=== PATIENT | male | born 1990 | race Caucasian/White ===

== ENCOUNTER → 2020-12-12 | Outpatient (REF) | payer OTHER ==
[~2020-12-12] MED LIST: VENTAER INH
== END ==
LOC: M LAB REF 17:52
PROVIDERS: ATTEND Physician Assistant Medical
DX: R50.9 Fever, unspecified (principal)

== ENCOUNTER 2020-12-17 14:35 | Emergency (ER) | payer OTHER ==
[~2020-12-17] VITALS: Ht 175.3 cm; Wt 67.4 kg
--- OUTSIDE RECORDS SUMMARY | 2020-12-17 14:43 | CCD ---
Author Author [facility] Organization [facility] Address Unknown Phone Unavailable Support Name Relationship Address Phone CARFRESH Next Of Kin [address] [place] [address] JEOVANY Next Of Kin [address] [place] [address] VANITA CARVAJAL Next Of [address] [place] [address] Edyta CARVAJAL Next Of Kin [address] [facility] [address] [place] [address] Re-disclosure Warning The records that you are about to access may contain information from federally-assisted alcohol or drug abuse programs. If such information is present, then the following federally mandated warning applies: This information has been disclosed to you from records protected by federal confidentiality rules (42 CFR part 2). The federal rules prohibit you from making any further disclosure of this information unless further disclosure is expressly permitted by the written consent of the person to whom it pertains or as otherwise permitted by 42 CFR part 2. A general authorization for the release of medical or other information is NOT sufficient for this purpose. The Federal rules restrict any use of the information to criminally investigate or prosecute any alcohol or drug abuse patient.The records that you are about to access may contain highly sensitive health information, the redisclosure of which is protected by Article 27-F of the [facility] Public Health law. If you continue you may have access to information: Regarding HIV / AIDS; Provided by facilities licensed or operated by the [facility] Office of Mental Health; or Provided by the [facility] Office for People With Developmental Disabilities. If such information is present, then the following [facility] mandated warning applies: This information has been disclosed to you from confidential records which are protected by state law. State law prohibits you from making any further disclosure of this information without the specific written consent of the person to whom it pertains, or as otherwise permitted by law. Any unauthorized further disclosure in violation of state law may result in a fine or penitentiary sentence or both. A general authorization for the release of medical or other information is NOT sufficient authorization for further disc losure. Family History Family Member Name Family Member Gender Family Member Status Date o f Status Description Data Source(s) Unknown Unknown Problem [facility] ([facility]) Unknown Unknown Problem [facility] ([facility]) father,mgf,mgm,maternal uncle Unknown Unknown Problem [facility] ([facility] Immunizations Vaccine Date Status Description Data Source(s) COVID-19 VACCINE Moderna 07/13/2020 12:00:00 AM EDT completed [place] Vaccine Series Complete: NOThis Data was Submitted to [facility] Via [employer]. Medications No Information Insurance Providers Payer name Policy type / Coverage type Policy ID Covered green party ID Covered green party's relationship to castillo Policy Castillo Plan Information [facility] [id number] SP 82 [id number] Lifetime Benefit Solution Commercial [id number] Self 1 [id number] Lifetime [employer] Commercial [id number] Self [employer] [id number] SP [id number] [employer] O [id number] S [id number] Lif[employer] Commercial [id number] Self Problems, Conditions, and Diagnoses No Information Surgeries/Procedures No Information Results ID Date Data Source [id number] 12/08/2020 12:00:00 AM EDT [place] Name Value Range Interpretation Code Description Data [place] rce(s) Supporting Document(s) SARS-CoV2 Rapid Antigen [address] [facility] This lab was ordered by [facility] and reported by [facility]. Procedure Social History No Information Vital Signs ID Date Data Source UNK Name Value Range Interpretation Code Description Data Source(s) Systolic blood pressure 142 mm[Hg] 142 mm[Hg] M EDENT ([facility]) Diastolic blood pressure 91 mm[Hg] 91 mm[Hg] [facility] ([facility]) Heart rate 99 /min 99 /min [facility] ([facility]) Respiratory rate 18 /min 18 /min [facility] ( [facility]) Body temperature 98.5 [degF] 98.5 [degF] [facility] Body weight 139.00 [lb_av] 139.00 [lb_av] AUSTIN Cummings ([facility])
[2020-12-17] MEDS ORDERED: ALBUTEROL 90 MCG/ACT 8GM HFA INHALER INH ONE (19:50)
--- OUTSIDE RECORDS SUMMARY | 2020-12-17 20:19 | CCD ---
Author Author [facility] Organization [facility] Address Unknown Phone Unavailable Support Name Relationship Address Phone CARFRESH Next Of Kin [address] [place] [address] JEOVANY Next Of Kin [address] [place] [address] VANITA CARVAJAL Next Of Kin [address] [place] [address] Edyta CARVAJAL Next Of Kin [address] [facility] [address] [place] [address] Re-disclosure Warning The records that you are [...] is protected by Article 27-F of the [facility] Public Health law. If you continue you may have access to information: Regarding HIV / AIDS; Provided by facilities licensed or operated by the [facility] Office of Mental Health; or Provided by the [facility] Office for People With Developmental Disabilities. If such information is present, then the following [facility] mandated warning applies: This information has been [...] law may result in a fine or intermediate sentence or both. A general authorization for [...] father,mgf,mgm,maternal uncle Unknown Unknown Problem [facility] ([facility]) Immunizations Vaccine Date Status Description Data Source(s) COVID-19 VACCINE Moderna 07/13/2020 12:00:00 AM EDT completed [place] Vaccine Series Complete: NOThis Data was Submitted to [facility] Via [employer]. Medications No Information Insurance Providers Payer name Policy type / Coverage type Policy ID Covered libertarian ID Covered libertarian's relationship to castillo Policy Castillo Plan Information [facility] [id number] SP [id number] Lifetime Benefit Solution Commercial [id number] Self 1 [id number] Lifetime [employer] Commercial [id number] Self [employer] [id number] SP [id number] [employer] O [id number] S [id number] Lif[employer] Commercial [id number] Self Problems, Conditions, and Diagnoses No Information Surgeries/Procedures No Information Results ID Date Data Source [id number] 12/08/2020 12:00:00 AM EDT [place] Name Value Range Interpretation Code Description Data [place] rce(s) Supporting Document(s) SARS-CoV2 Rapid Antigen Negative [facility] This lab was ordered by [facility] and reported by [facility]. Procedure Social History No Information Vital Signs ID Date Data Source UNK Name Value Range Interpretation Code Description Data Source(s) Systolic blood pressure 142 mm[Hg] 142 mm[Hg] M EDENT ([facility]) Diastolic blood pressure 91 mm[Hg] 91 mm[Hg] [facility] ([facility]) Heart rate 99 /min 99 /min [facility] ([facility]) Respiratory rate 18 /min 18 /min [facility] ( [facility]) Body temperature 98.5 [degF] 98.5 [degF] [facility] Body weight 139.00 [lb_av] 139.00 [lb_av] AUSTIN Cummings ([facility])
[2020-12-17 20:37] LABS: BASO % 0.3 % (0.0-1.0); EOS % 0.3 % (0.0-3.0); HEMATOCRIT 50.9 % (42.0-52.0); HEMOGLOBIN 17.1 g/dl (13.5-17.5); LYMPH # 2.8 10^3/uL (1.5-5.0); LYMPH % 23.7 % (24.0-44.0); MEAN CORPUSCULAR HEMOGLOBIN 30.4 pg (27.0-33.0); MEAN CORPUSCULAR HGB CONC 33.6 g/dl (32.0-36.5); MEAN CORPUSCULAR VOLUME 90.4 fl (80.0-96.0); MONO % 8.4 % (2.0-8.0); NEUTROPHILS # 7.8 10^3/uL (1.5-8.5); NEUTROPHILS % 66.6 % (36.0-66.0); PLATELET COUNT, AUTOMATED 210 10^3/uL (150-450); RED BLOOD COUNT 5.63 10^6/uL (4.30-6.10); WHITE BLOOD COUNT 11.7 10^3/uL (4.0-10.0)
[2020-12-17 20:53] LABS: CK-MB VALUE MASS 1.1 NG/ML (<3.6); CPK CREATINE PHOSPHOKINASE 60 U/L (39-308); MB/CK RELATIVE INDEX 1.83 (< OR =4); TROPONIN I < 0.02 NG/ML (< 0.10)
[2020-12-17 21:13] LABS: RSV AMPLIFICATION NEGATIVE (NEGATIVE)
--- NOTE | 2020-12-17 22:16 | REPVR ---
PROCEDURE INFORMATION: Exam: XR Chest Exam date and time: 12/17/20 (8:19pm) Age: 30 years old Clinical indication: Chest pain TECHNIQUE: Imaging protocol: Portable CXR Views: 1 view COMPARISON: No relevant prior studies available FINDINGS: Lungs: Unremarkable. No consolidation. Pleural spaces: Unremarkable. No pleural effusions. No pneumothorax. Heart/Mediastinum: Unremarkable. No cardiomegaly. Bones/joints: Unremarkable. IMPRESSION: No acute findings. Clear lung maher. Electronically signed by: Ingrid Thompson On 12/17/2020 22:15:39 PM
[2020-12-17] MEDS ORDERED: VENTAER INH (22:35)
[2020-12-17 22:50] VITALS: BP 132/91
--- NOTE | 2020-12-18 06:58 | ECGEPIP ---
[facility] - ED Test Date: 2020-12-17 Pat Name: HARLEY CARVAJAL Department: Room: - Gender: Male Service Secretary: : 1990 Requested By: SAVANNAH WHALEN PA-C. Order Number: [id number] Reading MD: Noel Bruno Measurements Intervals [place] Rate: 59 P: 65 SD: 146 QRS: 44 QRSD: 104 T: 53 QT: 418 QTc: 413 Interpretive Statements Sinus bradycardia RSR' or QR pattern in V1 suggests right ventricular conduction delay Comparison tracing not on file Electronically Signed on 12-18-2020 6:58:31 EDT by Noel Bruno
== END 2020-12-17 22:53 | disposition home or self-care (01) ==
LOC: M ED 14:35
DX: J20.9 Acute bronchitis, unspecified (principal)

== ENCOUNTER → 2021-03-02 | Outpatient (REF) | payer BC, OTHER ==
[2021-03-02 12:29] LABS: RSV AMPLIFICATION NEGATIVE (NEGATIVE)
== END ==
LOC: M LAB REF 11:01
PROVIDERS: ATTEND Physician Assistant
DX: R50.9 Fever, unspecified (principal); R53.83 Other fatigue

== ENCOUNTER 2023-06-07 01:32 | Inpatient (IN) | payer OTHER ==
[~2023-06-07] VITALS: Ht 175.3 cm; Wt 70.3 kg
[2023-06-07 02:50] LABS: BASO % 0.3 % (0.0-1.0); EOS % 0.1 % (0.0-3.0); HEMATOCRIT 49.9 % (42.0-52.0); HEMOGLOBIN 17.1 g/dl (13.5-17.5); LYMPH # 0.6 10^3/uL (1.5-5.0); LYMPH % 5.2 % (24.0-44.0); MEAN CORPUSCULAR HEMOGLOBIN 30.8 pg (27.0-33.0); MEAN CORPUSCULAR HGB CONC 34.3 g/dl (32.0-36.5); MEAN CORPUSCULAR VOLUME 89.7 fl (80.0-96.0); MONO # 0.8 10^3/uL (0.0-0.8); MONO % 7.1 % (2.0-8.0); NEUTROPHILS # 9.9 10^3/uL (1.5-8.5); PLATELET COUNT, AUTOMATED 191 10^3/uL (150-450); RED BLOOD COUNT 5.56 10^6/uL (4.30-6.10); WHITE BLOOD COUNT 11.3 10^3/uL (4.0-10.0)
[2023-06-07 03:25] LABS: ALBUMIN 4.3 G/DL (3.2-5.2); ALKALINE PHOSPHATASE 120 U/L (46-116); ALT/SGPT 507 U/L (7.0-40); AST/SGOT 301 U/L (<34); BILIRUBIN,DIRECT 3.6 MG/DL (<0.4); BILIRUBIN,TOTAL 5.1 MG/DL (0.3-1.2); BLOOD UREA NITROGEN 14 MG/DL (9-23); CALCIUM LEVEL 9.3 MG/DL (8.5-10.1); CARBON DIOXIDE LEVEL 26 MMOL/L (20-31); CHLORIDE LEVEL 105 MMOL/L (98-107); CREATININE FOR GFR 0.92 MG/DL (0.70-1.30); GLOMERULAR FILTRATION RATE > 60.0 (>60); GLUCOSE, FASTING 133 MG/DL (60-100); POTASSIUM SERUM 3.8 MMOL/L (3.5-5.1); SODIUM LEVEL 141 MMOL/L (136-145); TOTAL PROTEIN 7.6 G/DL (5.7-8.2)
[2023-06-07 03:39] LABS: LIPASE > 3500 U/L (12-53)
[2023-06-07] MEDS: NS 1,000 ML IV ONE (04:58)
[2023-06-07] MEDS: ONDANSETRON 4MG 2ML VIAL IV ONE (04:59)
[2023-06-07] MEDS: HYDROMORPHONE HCL 0.5 MG/ 0.5 ML SYRINGE IV PRN ×3 (05:00→20:13)
[2023-06-07] MEDS: PIPERACILLIN/TAZOBACTAM SOD 4.5 GM in D5W MINI-BAG PLUS 50 ML IV ONE (05:03)
[2023-06-07] MEDS ORDERED: PEPT262S PO (06:29)
[2023-06-07] MEDS ORDERED: HOME MED LIST COMPLETE! XX SCH (06:30)
[2023-06-07] MEDS ORDERED: NS 1,000 ML IV SCH (08:15)
[2023-06-07] MEDS: ENOXAPARIN 40MG/0.4ML SYRINGE (J1650 PER 10MG) SC SCH (08:33)
[2023-06-07] MEDS: LR 1,000 ML IV ONE (08:33)
[2023-06-07 09:48] VITALS: BP 122/70; TEMP 97.1; O2SAT 97
[2023-06-07] MEDS: PIPERACILLIN/TAZOBACTAM SOD 3.375 GM in D5W MINI-BAG PLUS 50 ML IV SCH (10:50)
[2023-06-07] MEDS: LR 1,000 ML IV SCH (10:51)
[2023-06-07] MEDS ORDERED: ONDANSETRON 4MG 2ML VIAL IV PRN (11:50)
[2023-06-07 12:00] VITALS: O2SAT 96
[2023-06-07 12:02] VITALS: BP 116/72; TEMP 98.4; O2SAT 98
[2023-06-07] MEDS: MORPHINE 2 MG/ML 1ML VIAL IV PRN (13:51)
[2023-06-07 15:51] VITALS: BP 130/74; TEMP 97.9; O2SAT 97
[2023-06-07] MEDS ORDERED: ISOVUE-370 76% 100ML VIAL As Ordered ONE (18:12)
[2023-06-07 19:18] VITALS: BP 146/91; TEMP 99.5; O2SAT 97
[2023-06-07 23:02] VITALS: BP 140/94; TEMP 99.8; O2SAT 94
[2023-06-08] VITALS (8 sets, daily range): BP systolic 124–148; BP diastolic 82–95; TEMP 97.9–101.3; O2SAT 90–95
[2023-06-08] MEDS: ACETAMINOPHEN TAB 650MG DOSE (2X325MG) PO PRN (03:42)
[2023-06-08 04:52] LABS: BASO % 0.2 % (0.0-1.0); EOS % 0.1 % (0.0-3.0); HEMATOCRIT 43.8 % (42.0-52.0); LYMPH # 0.7 10^3/uL (1.5-5.0); MEAN CORPUSCULAR HEMOGLOBIN 30.5 pg (27.0-33.0); MEAN CORPUSCULAR HGB CONC 34.5 g/dl (32.0-36.5); MEAN CORPUSCULAR VOLUME 88.5 fl (80.0-96.0); MONO # 1.1 10^3/uL (0.0-0.8); MONO % 9.2 % (2.0-8.0); NEUTROPHILS # 9.8 10^3/uL (1.5-8.5); NEUTROPHILS % 84.3 % (36.0-66.0); PLATELET COUNT, AUTOMATED 166 10^3/uL (150-450); RED BLOOD COUNT 4.95 10^6/uL (4.30-6.10); WHITE BLOOD COUNT 11.6 10^3/uL (4.0-10.0)
[2023-06-08 04:54] LABS: HEMOGLOBIN 15.1 g/dl (13.5-17.5); LIPASE 149 U/L (12-53)
[2023-06-08 05:03] LABS: ALBUMIN 3.5 G/DL (3.2-5.2); ALKALINE PHOSPHATASE 95 U/L (46-116); ALT/SGPT 308 U/L (7.0-40); AST/SGOT 86 U/L (<34); BILIRUBIN,TOTAL 1.3 MG/DL (0.3-1.2); BLOOD UREA NITROGEN 11 MG/DL (9-23); CALCIUM LEVEL 8.7 MG/DL (8.5-10.1); CARBON DIOXIDE LEVEL 24 MMOL/L (20-31); CHLORIDE LEVEL 103 MMOL/L (98-107); CREATININE FOR GFR 0.73 MG/DL (0.70-1.30); GLOMERULAR FILTRATION RATE > 60.0 (>60); GLUCOSE, FASTING 98 MG/DL (60-100); MAGNESIUM LEVEL 1.8 MG/DL (1.8-2.4); POTASSIUM SERUM 3.4 MMOL/L (3.5-5.1); SODIUM LEVEL 136 MMOL/L (136-145); TOTAL PROTEIN 6.4 G/DL (5.7-8.2)
[2023-06-08] MEDS: KCL 10MEQ/100ML SWI (KRUN) 10 MEQ in IV 1 EA IV SCH (08:57)
[2023-06-09] VITALS (8 sets, daily range): BP systolic 129–143; BP diastolic 82–96; TEMP 97.7–100.6; O2SAT 91–97
[2023-06-09 05:07] LABS: BASO % 0.4 % (0.0-1.0); EOS % 0.4 % (0.0-3.0); HEMATOCRIT 43.3 % (42.0-52.0); HEMOGLOBIN 14.8 g/dl (13.5-17.5); LYMPH # 1.3 10^3/uL (1.5-5.0); LYMPH % 13.4 % (24.0-44.0); MEAN CORPUSCULAR HEMOGLOBIN 30.5 pg (27.0-33.0); MEAN CORPUSCULAR HGB CONC 34.2 g/dl (32.0-36.5); MEAN CORPUSCULAR VOLUME 89.3 fl (80.0-96.0); MONO % 10.1 % (2.0-8.0); NEUTROPHILS # 7.1 10^3/uL (1.5-8.5); NEUTROPHILS % 75.4 % (36.0-66.0); PLATELET COUNT, AUTOMATED 161 10^3/uL (150-450); RED BLOOD COUNT 4.85 10^6/uL (4.30-6.10); WHITE BLOOD COUNT 9.5 10^3/uL (4.0-10.0)
[2023-06-09 05:42] LABS: ALBUMIN 3.2 G/DL (3.2-5.2); ALKALINE PHOSPHATASE 77 U/L (46-116); ALT/SGPT 209 U/L (7.0-40); AST/SGOT 43 U/L (<34); BILIRUBIN,TOTAL 1.1 MG/DL (0.3-1.2); BLOOD UREA NITROGEN 8 MG/DL (9-23); CALCIUM LEVEL 8.6 MG/DL (8.5-10.1); CARBON DIOXIDE LEVEL 25 MMOL/L (20-31); CHLORIDE LEVEL 106 MMOL/L (98-107); GLOMERULAR FILTRATION RATE > 60.0 (>60); GLUCOSE, FASTING 96 MG/DL (60-100); POTASSIUM SERUM 3.6 MMOL/L (3.5-5.1); SODIUM LEVEL 139 MMOL/L (136-145); TOTAL PROTEIN 6.1 G/DL (5.7-8.2)
[2023-06-10 03:41] VITALS: BP 133/86; TEMP 98.4; O2SAT 96
[2023-06-10 05:14] LABS: BASO % 0.3 % (0.0-1.0); EOS # 0.1 10^3/uL (0.0-0.5); EOS % 0.5 % (0.0-3.0); HEMATOCRIT 45.1 % (42.0-52.0); HEMOGLOBIN 15.3 g/dl (13.5-17.5); LYMPH # 1.4 10^3/uL (1.5-5.0); LYMPH % 14.3 % (24.0-44.0); MEAN CORPUSCULAR HEMOGLOBIN 30.4 pg (27.0-33.0); MEAN CORPUSCULAR HGB CONC 33.9 g/dl (32.0-36.5); MEAN CORPUSCULAR VOLUME 89.5 fl (80.0-96.0); MONO # 0.9 10^3/uL (0.0-0.8); MONO % 9.3 % (2.0-8.0); NEUTROPHILS # 7.3 10^3/uL (1.5-8.5); NEUTROPHILS % 75.4 % (36.0-66.0); PLATELET COUNT, AUTOMATED 194 10^3/uL (150-450); RED BLOOD COUNT 5.04 10^6/uL (4.30-6.10); WHITE BLOOD COUNT 9.7 10^3/uL (4.0-10.0)
[2023-06-10 05:38] LABS: ALBUMIN 2.9 G/DL (3.2-5.2); ALKALINE PHOSPHATASE 71 U/L (46-116); ALT/SGPT 155 U/L (7.0-40); AST/SGOT 24 U/L (<34); BILIRUBIN,TOTAL 0.9 MG/DL (0.3-1.2); BLOOD UREA NITROGEN 9 MG/DL (9-23); CALCIUM LEVEL 8.8 MG/DL (8.5-10.1); CARBON DIOXIDE LEVEL 24 MMOL/L (20-31); CHLORIDE LEVEL 106 MMOL/L (98-107); CREATININE FOR GFR 0.83 MG/DL (0.70-1.30); GLOMERULAR FILTRATION RATE > 60.0 (>60); GLUCOSE, FASTING 93 MG/DL (60-100); MAGNESIUM LEVEL 1.9 MG/DL (1.8-2.4); POTASSIUM SERUM 3.6 MMOL/L (3.5-5.1); SODIUM LEVEL 139 MMOL/L (136-145); TOTAL PROTEIN 6.4 G/DL (5.7-8.2)
[2023-06-10 07:43] VITALS: BP 132/97; TEMP 99.1; O2SAT 96
[2023-06-10] MEDS ORDERED: MORPHINE 2 MG/ML 1ML VIAL IV PRN (11:10)
[2023-06-10 16:12] VITALS: BP 127/89; TEMP 98.3; O2SAT 97
[2023-06-10 20:02] VITALS: BP 117/87; TEMP 99.6; O2SAT 96
[2023-06-11] VITALS (7 sets, daily range): BP systolic 99–133; BP diastolic 64–82; TEMP 96.7–99.4; O2SAT 94–98
[2023-06-11 06:04] LABS: BASO % 0.5 % (0.0-1.0); EOS # 0.1 10^3/uL (0.0-0.5); EOS % 1.1 % (0.0-3.0); HEMATOCRIT 42.4 % (42.0-52.0); HEMOGLOBIN 14.5 g/dl (13.5-17.5); LYMPH # 1.5 10^3/uL (1.5-5.0); LYMPH % 18.4 % (24.0-44.0); MEAN CORPUSCULAR HEMOGLOBIN 30.8 pg (27.0-33.0); MEAN CORPUSCULAR HGB CONC 34.2 g/dl (32.0-36.5); MONO # 0.8 10^3/uL (0.0-0.8); MONO % 9.2 % (2.0-8.0); NEUTROPHILS # 5.9 10^3/uL (1.5-8.5); NEUTROPHILS % 70.6 % (36.0-66.0); PLATELET COUNT, AUTOMATED 196 10^3/uL (150-450); RED BLOOD COUNT 4.71 10^6/uL (4.30-6.10); WHITE BLOOD COUNT 8.4 10^3/uL (4.0-10.0)
[2023-06-11 06:27] LABS: ALBUMIN 2.8 G/DL (3.2-5.2); ALKALINE PHOSPHATASE 62 U/L (46-116); ALT/SGPT 135 U/L (7.0-40); AST/SGOT 43 U/L (<34); BILIRUBIN,TOTAL 0.7 MG/DL (0.3-1.2); BLOOD UREA NITROGEN 11 MG/DL (9-23); CALCIUM LEVEL 8.6 MG/DL (8.5-10.1); CARBON DIOXIDE LEVEL 25 MMOL/L (20-31); CHLORIDE LEVEL 106 MMOL/L (98-107); CREATININE FOR GFR 0.85 MG/DL (0.70-1.30); GLOMERULAR FILTRATION RATE > 60.0 (>60); GLUCOSE, FASTING 95 MG/DL (60-100); POTASSIUM SERUM 3.7 MMOL/L (3.5-5.1); SODIUM LEVEL 138 MMOL/L (136-145); TOTAL PROTEIN 6.2 G/DL (5.7-8.2)
[2023-06-11] MEDS ORDERED: fentaNYL 250 MCG/5 ML INJECTION As Ordered ONE (11:49)
[2023-06-11] MEDS ORDERED: INDOCYANINE GREEN 25MG VIAL (IC-GREEN) As Ordered ONE (11:49)
[2023-06-11] MEDS ORDERED: ONDANSETRON 4MG 2ML VIAL As Ordered ONE (11:49)
[2023-06-11] MEDS ORDERED: MIDAZOLAM INJ 2MG/2ML VIAL As Ordered ONE (11:49)
[2023-06-11] MEDS ORDERED: KETOROLAC 60MG 2ML VIAL As Ordered ONE (11:49)
[2023-06-11] MEDS ORDERED: ACETAMINOPHEN 1000MG 100ML IV BAG As Ordered ONE (11:50)
[2023-06-11] MEDS ORDERED: LIDOCAINE 2% 100MG/5ML SDV (FOR ANES.) As Ordered ONE (11:50)
[2023-06-11] MEDS ORDERED: ROCURONIUM BROMIDE 50MG/5ML VIAL As Ordered ONE (11:50)
[2023-06-11] MEDS ORDERED: propofoL 200 MG/20 ML VIAL As Ordered ONE (11:50)
[2023-06-11] MEDS ORDERED: SUGAMMADEX SODIUM 500 MG/5 ML VIAL (BRIDION) As Ordered ONE (11:50)
[2023-06-11] MEDS ORDERED: ePHEDrine SULFATE 25 MG/5 ML(5MG/ML) SYRINGE As Ordered ONE (15:04)
[2023-06-11] MEDS ORDERED: HYDROMORPHONE HCL 0.5 MG/ 0.5 ML SYRINGE IV PRN (15:35)
[2023-06-11] MEDS: LR 1,000 ML IV SCH (15:35)
[2023-06-11] MEDS ORDERED: ONDANSETRON 4MG 2ML VIAL IV PRN (15:35)
[2023-06-11] MEDS ORDERED: oxyCODONE 5MG TAB PO PRN (15:35)
[2023-06-11] MEDS ORDERED: fentaNYL 100 MCG/2 ML INJECTION IV PRN (15:35)
[2023-06-11] MEDS: PERCOCET 5MG/325MG TAB PO PRN (18:05)
[2023-06-12] VITALS: BP 134/78; TEMP 98.4; O2SAT 93
[2023-06-12 04:00] VITALS: BP 142/88; TEMP 99.2; O2SAT 93
[2023-06-12 05:38] LABS: BASO % 0.2 % (0.0-1.0); EOS % 0.1 % (0.0-3.0); HEMATOCRIT 45.3 % (42.0-52.0); HEMOGLOBIN 15.1 g/dl (13.5-17.5); LYMPH % 9.9 % (24.0-44.0); MEAN CORPUSCULAR HGB CONC 33.3 g/dl (32.0-36.5); MEAN CORPUSCULAR VOLUME 89.9 fl (80.0-96.0); MONO # 0.8 10^3/uL (0.0-0.8); MONO % 7.3 % (2.0-8.0); NEUTROPHILS # 8.4 10^3/uL (1.5-8.5); NEUTROPHILS % 82.1 % (36.0-66.0); PLATELET COUNT, AUTOMATED 226 10^3/uL (150-450); RED BLOOD COUNT 5.04 10^6/uL (4.30-6.10); WHITE BLOOD COUNT 10.2 10^3/uL (4.0-10.0)
[2023-06-12 06:11] LABS: ALKALINE PHOSPHATASE 65 U/L (46-116); ALT/SGPT 167 U/L (7.0-40); AST/SGOT 69 U/L (<34); BILIRUBIN,TOTAL 0.7 MG/DL (0.3-1.2); BLOOD UREA NITROGEN 12 MG/DL (9-23); CALCIUM LEVEL 9.4 MG/DL (8.5-10.1); CARBON DIOXIDE LEVEL 25 MMOL/L (20-31); CHLORIDE LEVEL 102 MMOL/L (98-107); CREATININE FOR GFR 0.86 MG/DL (0.70-1.30); GLOMERULAR FILTRATION RATE > 60.0 (>60); GLUCOSE, FASTING 90 MG/DL (60-100); MAGNESIUM LEVEL 2.2 MG/DL (1.8-2.4); POTASSIUM SERUM 4.1 MMOL/L (3.5-5.1); SODIUM LEVEL 136 MMOL/L (136-145); TOTAL PROTEIN 6.8 G/DL (5.7-8.2)
[2023-06-12 07:57] VITALS: BP 137/81; TEMP 98.3; O2SAT 95
[2023-06-12] MEDS ORDERED: PERCOCET PO (08:52)
== END 2023-06-12 10:15 | disposition home or self-care (01) | DRG 263 ==
LOC: M ED 01:32 → M ED INP 07:59 → ENRESERV 08:58 → M PCU 09:44
PROVIDERS: ADMIT Internal Medicine; ATTEND Internal Medicine
PROC: 8E0W4CZ Robotic Assisted Procedure of Trunk Region, Percutaneous Endoscopic Approach (ICD-10-PCS; 2023-06-11)
PROC: 0FT44ZZ Resection of Gallbladder, Percutaneous Endoscopic Approach (ICD-10-PCS; principal; 2023-06-11 14:00)
DX: K80.20 Calculus of gallbladder without cholecystitis without obstruction (principal); K85.90 Acute pancreatitis without necrosis or infection, unspecified

== ENCOUNTER → 2023-07-12 | Outpatient (CLI) | payer BC ==
[~2023-07-12] MED LIST changes: +PEPT262S PO; +PERCOCET PO
== END ==
LOC: M WHC 08:10
PROVIDERS: ATTEND Physician Assistant
DX: R10.11 Right upper quadrant pain (principal); K43.2 Incisional hernia without obstruction or gangrene